=== PATIENT | female | born 1970 ===

== ENCOUNTER 2017-12-15 10:03 | Emergency (ER) | payer SELFPAY ==
[2017-12-15 10:15] VITALS: BMI 36.8
--- NOTE | 2017-12-15 10:42 | C.PDOC ---
History Of Present Illness 47 year old female presents to the ED complaining of low back pain since yesterday. Pain worsens with movement and at times, radiates anteriorly to her lower abdomen. She denies fever, nausea, vomiting, diarrhea, dysuria/hematuria, vaginal bleeding/discharge. Time Seen by Provider: 12/15/17 10:19 Chief Complaint (Nursing): Back Pain History Per: Patient History/Exam Limitations: no limitations Onset/Duration Of Symptoms: Days Current Symptoms Are (Timing): Still Present Severity: Mild Past Medical History Reviewed: Historical Data, Nursing Documentation, Vital Signs Vital Signs: Last Vital Signs Temp 98.1 F 12/15/17 12:15 Pulse 60 12/15/17 12:14 Resp 20 12/15/17 12:14 BP 125/74 12/15/17 12:14 Pulse Ox 97 12/16/17 09:51 - Medical History PMH: Anemia, Anxiety (ABOUT SURGERY), Asthma, Bronchitis, Gastritis, GERD, HTN, Migraine - [facility] Procedures D & C NEC (12/09/13) INJECT/INFUSE NEC (12/22/13) OTHER AND UNSPECIFIED TOTAL ABDOMINAL HYSTERECTOMY (01/13/14) REMOVE BOTH FALLOP TUBES (01/13/14) Family History: States: No Known Family Hx - Social History Hx Tobacco Use: No Hx Alcohol Use: No Hx Substance Use: No Review Of Systems Constitutional: Negative for: Fever, Chills Cardiovascular: Negative for: Chest Pain Respiratory: Negative for: Shortness of Breath Gastrointestinal: Positive for: Abdominal Pain. Negative for: Nausea, Vomiting , Diarrhea Genitourinary: Negative for: Dysuria, Hematuria, Vaginal Discharge, Vaginal Bleeding Musculoskeletal: Positive for: Back Pain Physical Exam - Physical Exam Appears: Well, Non-toxic, No Acute Distress Skin: Normal Color, Warm, Dry, No Rash Eye(s): bilateral: Normal Inspection Oral Mucosa: Moist Neck: Supple Cardiovascular: Rhythm Regular Respiratory: Normal Breath Sounds, No Rales, No Rhonchi, No Wheezing Gastrointestinal/Abdominal: Normal Exam, Bowel Sounds, Soft, No Tenderness Back: No CVA Tenderness, No Vertebral Tenderness, Paraspinal Tenderness (to lumbar region at L3-L4 level) Extremity: Bilateral: Normal Color And Temperature, Normal ROM Neurological/Psych: Oriented x3 Gait: Steady ED Course And Treatment O2 Sat by Pulse Oximetry: 97 (RA) Pulse Ox Interpretation: Normal - Other Rad Obstructive Series XR X-Ray: Read By Radiologist Interpretation: Unremarkable radiographs of chest and abdomen. No evidence of mechanical bowel obstruction. Lumbar Spine XR X-Ray: Read By Radiologist Interpretation: Unremarkable radiographs of the lumbar spine. Progress Note: UA and UPREG, Xrays of LS spine and obstructive series ordered and reviewed. Patient given PO tylenol and flexeril (has NSAID allergy). Reevaluation Time: 12:15 Reassessment Condition: Improved (On reassessment, patient is resting comfortably, states pain has improved and she feels better. Patient is ambulating normally. Rxs for flexeril, mag citrate and colace given. Patient instructed to follow up with PMD/clinic in 1-2 days, and understands she should return to ED if symptoms worsen.) Disposition Counseled Patient/Family Regarding: Studies Performed, Diagnosis, Need For Followup, Rx Given - Disposition Referrals: Mayra Naqvi MD [Medical Doctor] - Disposition: HOME/ ROUTINE Disposition Time: 12:15 Condition: STABLE Additional Instructions: FOLLOW UP WITH YOUR DOCTOR/CLINIC IN 1-2 DAYS USE MEDICATION NEEDED DRINK PLENTY OF WATER AND INCREASE YOUR FIBER INTAKE RETURN TO EMERGENCY ROOM IF SYMPTOMS WORSEN SEGUIMIENTO CON GIRON MDICO / CLNICA EN 1-2 MACHADO USE MEDICAMENTOS SEGN SEA NECESARIO ROSINA ABUNDANTE AGUA Y AUMENTA TU CATHY DE FIBRA REGRESE AL JAIME DE EMERGENCIA SI LOS SNTOMAS EMPEORAN Prescriptions: Cyclobenzaprine [Flexeril] 10 mg PO BID PRN #15 tab PRN Reason: Muscle Spasm Docusate [Colace] 100 mg PO DAILY #30 cap Magnesium Citrate [Citrate of Mag] 300 ml PO ONCE PRN #1 bottle PRN Reason: Constipation Instructions: Constipation, Adult (DC), Low Back Pain (DC) Forms: [employer] (Persian) Print Language: KHMER - POA Present On Arrival: None - Clinical Impression Clinical Impression: Low back pain, Constipation - Scribe Statement The provider has reviewed the documentation as recorded by the Scribe (Valeria Larson) Provider Attestation: All medical record entries made by the Scribe were at my direction and personally dictated by me. I have reviewed the chart and agree that the record accurately reflects my personal performance of the history, physical exam, medical decision making, and the department course for this patient. I have also personally directed, reviewed, and agree with the discharge instructions and disposition.
[2017-12-15 11:20] LABS: HCG,QUALITATIVE URINE NEGATIVE (NEGATIVE)
[2017-12-15 11:21] LABS: SQUAMOUS EPITHIAL 1 /hpf (0-5); URINE BILIRUBIN NEGATIVE (NEGATIVE); URINE BLOOD NEGATIVE (NEGATIVE); URINE CLARITY Clear (Clear); URINE COLOR Straw (YELLOW); URINE GLUCOSE (UA) NORMAL (Normal); URINE LEUKOCYTE ESTERASE NEG Leu/uL (Negative); URINE PROTEIN NEGATIVE (NEGATIVE); URINE UROBILINOGEN NORMAL mg/dL (0.2-1.0)
[2017-12-15 12:15] VITALS: BP 125/74; PULSE 60; RESP 20; TEMP 98.1; O2SAT 97
--- NOTE | 2017-12-15 12:20 | RAD ---
PROCEDURE: Radiographs of the Lumbar Spine. HISTORY: LOW BACK PAIN COMPARISON: No prior. FINDINGS: BONES: Normal alignment. No listhesis. No fracture. DISC SPACES: Unremarkable. OTHER FINDINGS: None. IMPRESSION: Unremarkable radiographs of the lumbar spine.
--- NOTE | 2017-12-15 12:22 | RAD ---
PROCEDURE: Radiographs of the chest and abdomen (obstructive series) HISTORY: CONSTIPATION COMPARISON: No prior. TECHNIQUE: AP radiograph of the chest, with upright and supine radiographs of the abdomen. FINDINGS: CHEST: Lungs: Clear. Cardiovascular: Normal size heart. No pulmonary vascular congestion. Pleura: No pleural fluid. No pneumothorax. Other findings: None. ABDOMEN AND PELVIS: Bowel: Unremarkable bowel gas pattern. No evidence of mechanical obstruction. Free air: None. Bones: Unremarkable. Other findings: None. IMPRESSION: Unremarkable radiographs of chest and abdomen. No evidence of mechanical bowel obstruction.
== END 2017-12-15 12:34 | disposition home or self-care (01) ==
LOC: C.ER 10:03
DX: M54.5 Low back pain (principal); K59.00 Constipation, unspecified; I10 Essential (primary) hypertension; K21.9 Gastro-esophageal reflux disease without esophagitis

== ENCOUNTER 2018-02-06 07:16 | Day surgery (SDC) | payer SELFPAY ==
[2018-02-06 07:46] VITALS: O2SAT 100
--- NOTE | 2018-02-06 08:18 | CP.SDSHP ---
Same Day Surgery H & P - History Proposed Procedure: EGD Pre-Op Diagnosis: epigastric pain. heartburn - Previous Medical/Surgical History Endocrine/Metabolic: Obesity Misc: Other (Gerd, gastritis, H pylori, hiatal hernia) Previous Surgical History: MYA - Allergies Allergies: Allergies ibuprofen Allergy (Verified 12/15/17 10:37) RASH GI DISTRESS - Physical Exam Vital Signs: Vital Signs 02/06/18 07:36 Temperature 97.7 F Pulse Rate 72 Respiratory 19 Rate Blood Pressure 141/70 O2 Sat by Pulse 100 Oximetry Mental Status: Alert & Oriented x3 Neuro: WNL Heart: WNL Lungs: WNL GI: WNL - Impression Impression: epigastric pain. heartburn Pt. Evaluated Today:Candidate for Anesthesia & Procedure: Yes - Date & Time Date: 02/06/18 Time: 08:19 Short Stay Discharge - Short Stay Discharge Admitting Diagnosis/Reason for Visit: HEARTBURN / EPIGASTRIC PAIN / MORBID OBESITY Disposition: HOME/ ROUTINE
[2018-02-06] MEDS ORDERED: Lactated Ringer's 500 ML IV ONE (08:20)
[2018-02-06] MEDS ORDERED: Propofol 10 mg/ml Inj (20 ML) ONE (08:22)
[2018-02-06] MEDS ORDERED: Pantoprazole 40 mg EC Tab PO STA (08:39)
[2018-02-06 08:48] VITALS: TEMP 97
[2018-02-06 09:28] VITALS: BP 142/70; PULSE 78; RESP 20
== END 2018-02-06 09:30 | disposition home or self-care (01) ==
LOC: C.ENDO 07:16
PROVIDERS: ATTEND Internal Medicine Gastroenterology
DX: K21.0 Gastro-esophageal reflux disease with esophagitis (principal); E66.01 Morbid (severe) obesity due to excess calories; E66.9 Obesity, unspecified; K44.9 Diaphragmatic hernia without obstruction or gangrene; K29.70 Gastritis, unspecified, without bleeding
CPT/HCPCS: 43239; 88305; J2001; J2704; J7120

== ENCOUNTER 2018-09-04 14:18 | Outpatient (CLI) | payer OTHER | END 2018-09-04 14:19 | disposition home or self-care (01) | LOC: C.USIC 14:18 | DX: R19.00 Intra-abdominal and pelvic swelling, mass and lump, unspecified site (principal) ==

== ENCOUNTER 2018-09-06 08:30 | Outpatient (CLI) | payer SELFPAY | END 2018-09-06 08:31 | disposition home or self-care (01) | LOC: C.MAMMO 08:31 | DX: N64.4 Mastodynia (principal) ==

== ENCOUNTER 2018-09-18 18:18 | Emergency (ER) | payer SELFPAY ==
[2018-09-18 18:19] VITALS: BMI 36.8
[2018-09-18 18:34] VITALS: BP 141/74; PULSE 76; RESP 18; TEMP 98.4; O2SAT 100
--- NOTE | 2018-09-18 18:40 | C.PDOC ---
History Of Present Illness 48 y/o female presents to the ED complaining of left side knee pain for 4 days, but worsened today. Pain is localized to the outer side of left knee. She describes the pain as sharp and burning. Denies trauma or recent fall. Denies any numbness, weakness, swelling, chest pain, or SOB. Time Seen by Provider: 09/18/18 18:35 Chief Complaint (Nursing): Lower Extremity Problem/Injury History Per: Patient History/Exam Limitations: no limitations Onset/Duration Of Symptoms: Days (x 4) Current Symptoms Are (Timing): Still Present Past Medical History Reviewed: Historical Data, Nursing Documentation, Vital Signs Vital Signs: Last Vital Signs Temp 98.4 F 09/18/18 18:27 Pulse 76 09/18/18 18:27 Resp 18 09/18/18 18:27 BP 141/74 09/18/18 18:27 Pulse Ox 100 09/18/18 18:27 - Medical History PMH: Anemia, Anxiety (ABOUT SURGERY), Gastritis, GERD, HTN, Migraine Denies: Chronic Kidney Disease Surgical History: Endoscopy - [facility] Procedures D & C NEC (12/09/13) INJECT/INFUSE NEC (12/22/13) OTHER AND UNSPECIFIED TOTAL ABDOMINAL HYSTERECTOMY (01/13/14) REMOVE BOTH FALLOP TUBES (01/13/14) Family History: States: Unknown Family Hx - Social History Hx Tobacco Use: No Hx Alcohol Use: No Hx Substance Use: No - Immunization History Hx Tetanus Toxoid Vaccination: No Hx Influenza Vaccination: No Hx Pneumococcal Vaccination: No Review Of Systems Except As Marked, All Systems Reviewed And Found Negative. Constitutional: Negative for: Fever, Chills Cardiovascular: Negative for: Chest Pain Respiratory: Negative for: Shortness of Breath Gastrointestinal: Negative for: Nausea, Vomiting Musculoskeletal: Positive for: Leg Pain (Left knee) Skin: Negative for: Rash, Lesions Neurological: Negative for: Weakness, Numbness, Incoordination Physical Exam - Physical Exam Appears: Well, Non-toxic, No Acute Distress Skin: Warm, Dry, No Rash Head: Atraumatic, Normacephalic Eye(s): bilateral: Normal Inspection, PERRL, EOMI Oral Mucosa: Moist Neck: Normal ROM Chest: Symmetrical Respiratory: No Accessory Muscle Use, Other (NARD) Extremity: Normal ROM, No Tenderness (no focal tenderness to the knee), No Calf Tenderness, No Deformity, No Swelling Pulses: Left Dorsalis Pedis: Normal, Right Dorsalis Pedis: Normal Neurological/Psych: Oriented x3, Normal Cranial Nerves, Normal Motor, Normal Sensation Gait: Steady ED Course And Treatment O2 Sat by Pulse Oximetry: 100 (RA) Pulse Ox Interpretation: Normal Medical Decision Making Medical Decision Making: Plan: Patient treated with 100mg SC Lovenox. Advised to return tomorrow morning for doppler US to rule out DVT. Disposition Counseled Patient/Family Regarding: Diagnosis, Need For Followup, Rx Given - Disposition Referrals: YOUR,PMD [Other] Disposition: HOME/ ROUTINE Disposition Time: 18:39 Condition: GOOD Additional Instructions: RETURN TOMORROW MORNING BETWEEN 0830 AND 2 PM FOR ULTRASOUND OF YOUR LEG FOR POSSIBLE LEG CLOT. Instructions: Paresthesias (DC) Forms: [facility] (Tongan), Work Excuse Print Language: HEBREW - Clinical Impression Clinical Impression: Paresthesia - Scribe Statement The provider has reviewed the documentation as recorded by the Isabel Larson Provider Attestation: All medical record entries made by the Isabel were at my direction and personally dictated by me. I have reviewed the chart and agree that the record accurately reflects my personal performance of the history, physical exam, medical decision making, and the department course for this patient. I have also personally directed, reviewed, and agree with the discharge instructions and disposition.
[2018-09-18] MEDS ORDERED: Enoxaparin 40 mg Syringe SC STA (18:42)
[2018-09-18] MEDS ORDERED: Enoxaparin 100 mg Syringe ONE (19:06)
== END 2018-09-18 19:09 | disposition home or self-care (01) ==
LOC: C.ER 18:18
DX: R20.2 Paresthesia of skin (principal)
CPT/HCPCS: 96372; 99283; J1650

== ENCOUNTER 2018-09-19 09:11 | Emergency (ER) | payer SELFPAY ==
[2018-09-19 09:12] VITALS: BMI 36.8
[2018-09-19 09:27] VITALS: O2SAT 97
--- NOTE | 2018-09-19 11:31 | C.PDOC ---
History Of Present Illness 48 y/o female presents to the ER complaining of left knee pain which has been present for the past 5 days. Patient described the pain as burning sensation. Patient was evaluated for same complaint in ER yesterday. She was instructed to return to the ER for venous duplex scan today. Denies having direct trauma, falls, injuries, weakness, numbness, CP, and SOB. Chief Complaint (Nursing): Lower Extremity Problem/Injury History Per: Patient History/Exam Limitations: no limitations Onset/Duration Of Symptoms: Days Current Symptoms Are (Timing): Still Present Severity: Moderate Past Medical History Reviewed: Historical Data, Nursing Documentation, Vital Signs Vital Signs: Last Vital Signs Temp 98.1 F 09/19/18 09:24 Pulse 76 09/19/18 09:24 Resp 18 09/19/18 09:24 BP 146/82 09/19/18 09:24 Pulse Ox 97 09/19/18 09:24 - Medical History PMH: Anemia, Anxiety (ABOUT SURGERY), Gastritis, GERD, HTN, Migraine Denies: Chronic Kidney Disease Surgical History: Endoscopy - [facility] Procedures D & C NEC (12/09/13) INJECT/INFUSE NEC (12/22/13) OTHER AND UNSPECIFIED TOTAL ABDOMINAL HYSTERECTOMY (01/13/14) REMOVE BOTH FALLOP TUBES (01/13/14) Family History: States: No Known Family Hx - Social History Hx Tobacco Use: No Hx Alcohol Use: No Hx Substance Use: No - Immunization History Hx Tetanus Toxoid Vaccination: No Hx Influenza Vaccination: No Hx Pneumococcal Vaccination: No Review Of Systems Except As Marked, All Systems Reviewed And Found Negative. Musculoskeletal: Positive for: Other (left knee pain) Neurological: Negative for: Weakness, Numbness Physical Exam - Physical Exam Appears: Non-toxic, No Acute Distress Skin: Normal Color, Warm, Dry, Other (skin intact to left knee) Head: Atraumatic, Normacephalic Eye(s): bilateral: Normal Inspection Nose: Normal Oral Mucosa: Moist Neck: Supple Chest: Symmetrical Extremity: Normal ROM, No Tenderness, No Calf Tenderness, No Swelling Neurological/Psych: Oriented x3, Normal Speech, Normal Sensation ED Course And Treatment O2 Sat by Pulse Oximetry: 97 (RA) Pulse Ox Interpretation: Normal Medical Decision Making Medical Decision Making: Plan: --Venous Duplex Scan- Low Ext. Lft. Updates: Venous Duplex Scan is negative. Patient has been discharged and instructed to follow up with PMD in 1-2 days. Disposition Counseled Patient/Family Regarding: Studies Performed, Diagnosis, Need For Followup - Disposition Disposition: HOME/ ROUTINE Disposition Time: 11:29 Condition: GOOD Additional Instructions: TAYLOR SAINZ, thank you for letting us take care of you today. Your provider was Mallory Barber MD and you were treated for FOLLOW UP/POSSIBLE LEG CLOT. The emergency medical care you received today was directed at your acute symptoms. If you were prescribed any medication, please fill it and take as directed. It may take several days for your symptoms to resolve. Return to the Emergency Department if your symptoms worsen, do not improve, or if you have any other problems. Please contact your doctor for a follow up appointment in 1-2 days. . Bring any paperwork you were given at discharge with you along with any medications you are taking to your follow up visit. Our treatment cannot replace ongoing medical care by a primary care provider outside of the emergency department. Thank you for allowing the [facility] team to be part of your care today. Instructions: Knee Pain (DC) Forms: Gen Discharge Inst Bahraini, [employer] (Bahraini) Print Language: TAMAZIGHT - POA Present On Arrival: None - Clinical Impression Clinical Impression: Knee pain, left - Scribe Statement The provider has reviewed the documentation as recorded by the Isabel Canales Provider Attestation: All medical record entries made by the Isabel were at my direction and personally dictated by me. I have reviewed the chart and agree that the record accurately reflects my personal performance of the history, physical exam, medical decision making, and the department course for this patient. I have also personally directed, reviewed, and agree with the discharge instructions and disposition.
[2018-09-19 11:35] VITALS: BP 144/85; PULSE 60; TEMP 98.3
[2018-09-19 11:37] VITALS: RESP 18
== END 2018-09-19 11:48 | disposition home or self-care (01) ==
LOC: C.ER 09:11
DX: M25.562 Pain in left knee (principal); I10 Essential (primary) hypertension

== ENCOUNTER 2018-10-01 09:33 | Emergency (ER) | payer SELFPAY ==
[2018-10-01 09:33] VITALS: BMI 36.8
--- NOTE | 2018-10-09 12:18 | C.PDOC ---
History Of Present Illness Late entry. Patient was seen during [facility] downtime. Patient is a 48-year-old female with a history of hypertension, presents to the emergency department complaining of pain to her left breast with an associated lesion. She noted this lesion about four days ago. There was some scanned purulent drainage. Minimal pain 2/10, associated redness and tenderness around the site. Patient denies any fevers, no nausea no vomiting, no shortness of breath, no chest pain. As per patient, she was recently seen by her PMD. Complaining of breast-pain. At this time she had a mammogram done. She is unaware of the mammogram results. Time Seen by Provider: 10/01/18 10:24 History Per: Patient History/Exam Limitations: no limitations Severity: Mild Pain Scale Rating Of: 2 Additional History Per: Patient Past Medical History - Medical History PMH: Anemia, Anxiety (ABOUT SURGERY), Gastritis, GERD, HTN, Migraine Denies: Chronic Kidney Disease Surgical History: Endoscopy - [facility] Procedures D & C NEC (12/09/13) INJECT/INFUSE NEC (12/22/13) OTHER AND UNSPECIFIED TOTAL ABDOMINAL HYSTERECTOMY (01/13/14) REMOVE BOTH FALLOP TUBES (01/13/14) Family History: States: Unknown Family Hx - Social History Hx Tobacco Use: No Hx Alcohol Use: No Hx Substance Use: No - Immunization History Hx Tetanus Toxoid Vaccination: No Hx Influenza Vaccination: No Hx Pneumococcal Vaccination: No Review Of Systems Constitutional: Negative for: Fever, Chills Cardiovascular: Negative for: Chest Pain, Palpitations Respiratory: Negative for: Cough, Shortness of Breath Physical Exam - Physical Exam Appears: Non-toxic Skin: Normal Color Head: Normacephalic Neck: Normal Respiratory: Normal Breath Sounds Gastrointestinal/Abdominal: Normal Exam Neurological/Psych: Oriented x3 1 - small raised red leision, non fluctuant, minimal tenderness, no drainage. Disposition Counseled Patient/Family Regarding: Diagnosis, Need For Followup, Rx Given - Disposition Referrals: Mervin Naqvi MD [Non-Staff] - Disposition: HOME/ ROUTINE Disposition Time: 10:34 Condition: STABLE - POA Present On Arrival: None - Clinical Impression Clinical Impression: Left breast abscess
== END 2018-10-01 11:20 | disposition home or self-care (01) ==
LOC: C.ER 09:33
DX: N61.1 Abscess of the breast and nipple (principal); I10 Essential (primary) hypertension

== ENCOUNTER 2018-11-12 09:19 | Outpatient (CLI) | payer SELFPAY | END 2018-11-12 09:20 | disposition home or self-care (01) | LOC: C.USIC 09:19 | DX: N64.4 Mastodynia (principal) ==

== ENCOUNTER 2018-11-13 09:50 | Emergency (ER) | payer SELFPAY ==
[2018-11-13 09:50] VITALS: BMI 36.8
[2018-11-13 10:03] VITALS: TEMP 98.5
--- NOTE | 2018-11-13 10:21 | C.PDOC ---
History Of Present Illness 48 year old female presents to ED with complaint of bilateral neck irritation and itching since yesterday. She notes minimal relief with Benadryl PO. She denies difficulty swallowing, difficulty breathing, and fever. bl neck irritation, itch since YEST. MIN RELIEF W PO BENADRYL. NO OTHER ASSOC SX. EXAM NARD SKIN +B/L BASE OF NECK MACULAR, WELL DEMARCATED BORDER, BLANCHING ERYTHEMA. NO LESIONS; INTACT; NO EDEMA REMAINDER NEG MDM HIVES. STEROID CREAM, CONT BENADRYL Time Seen by Provider: 11/13/18 10:12 Chief Complaint (Nursing): Allergic Reaction History Per: Patient History/Exam Limitations: no limitations Onset/Duration Of Symptoms: Days (1) Current Symptoms Are (Timing): Still Present Location Of Injury: Right: Neck (irritation), Left: Neck Quality Of Symptoms: Itching Past Medical History Reviewed: Historical Data, Nursing Documentation, Vital Signs Vital Signs: Last Vital Signs Temp 98.5 F 11/13/18 09:58 Pulse 76 11/13/18 09:58 Resp 18 11/13/18 09:58 BP 149/82 11/13/18 09:58 Pulse Ox 98 11/13/18 09:58 Primary Care Provider: Ana Barrow - Medical History PMH: Anemia, Anxiety (ABOUT SURGERY), Gastritis, GERD, HTN, Migraine Denies: Chronic Kidney Disease Surgical History: Endoscopy - [facility] Procedures D & C NEC (12/09/13) INJECT/INFUSE NEC (12/22/13) OTHER AND UNSPECIFIED TOTAL ABDOMINAL HYSTERECTOMY (01/13/14) REMOVE BOTH FALLOP TUBES (01/13/14) Family History: States: Unknown Family Hx - Social History Hx Tobacco Use: No Hx Alcohol Use: No Hx Substance Use: No - Immunization History Hx Tetanus Toxoid Vaccination: No Hx Influenza Vaccination: No Hx Pneumococcal Vaccination: No Review Of Systems Except As Marked, All Systems Reviewed And Found Negative. ENT: Positive for: Other (bilateral neck irritation and itching) Physical Exam - Physical Exam Appears: Well, Non-toxic, No Acute Distress Skin: Other (+bilateral base of neck macular, well demarcated border, blanching erythema, no lesions, intact, no edema) Head: Atraumatic, Normacephalic Eye(s): bilateral: Normal Inspection Ear(s): Bilateral: Normal Nose: Normal Oral Mucosa: Moist Throat: Normal, No Erythema, No Exudate Neck: Normal ROM, Supple Chest: Symmetrical, No Deformity Cardiovascular: Rhythm Regular, No Murmur Respiratory: No Accessory Muscle Use, No Rales, No Rhonchi, No Wheezing Gastrointestinal/Abdominal: Soft, No Tenderness Extremity: Capillary Refill (<2 seconds) Extremity: Bilateral: Atraumatic, Normal Color And Temperature, Normal ROM Pulses: Left Radial: Normal, Right Radial: Normal Neurological/Psych: Oriented x3, Normal Speech, Normal Cognition ED Course And Treatment O2 Sat by Pulse Oximetry: 98 (in RA) Pulse Ox Interpretation: Normal Medical Decision Making Medical Decision Making: MDM: Hives. Patient given steroid cream and told to continue taking Benadryl. Disposition Counseled Patient/Family Regarding: Diagnosis, Need For Followup, Rx Given - Disposition Referrals: YOUR,PMD [Other] Disposition: HOME/ ROUTINE Disposition Time: 10:19 Condition: GOOD Prescriptions: Hydrocortisone 1% Cream [Cortizone 1% Cream] 30 applic TOP BID #1 tube Instructions: Contact Dermatitis (DC) Forms: [employer] (Burkinan), Work Excuse Print Language: TONGAN - Clinical Impression Clinical Impression: Contact dermatitis - Scribe Statement The provider has reviewed the documentation as recorded by the Scribe (Tiffanie Bacon) All medical record entries made by the Scribe were at my direction and personally dictated by me. I have reviewed the chart and agree that the record accurately reflects my personal performance of the history, physical exam, medical decision making, and the department course for this patient. I have also personally directed, reviewed, and agree with the discharge instructions and disposition.
[2018-11-13 10:26] VITALS: BP 138/78; PULSE 82; RESP 19
[2018-11-13 12:23] VITALS: O2SAT 98
== END 2018-11-13 10:28 | disposition home or self-care (01) ==
LOC: C.ER 09:50
DX: L25.9 Unspecified contact dermatitis, unspecified cause (principal)